=== PATIENT | male | born 1950 | race Caucasian/White ===

== ENCOUNTER 2016-07-02 15:59 | Emergency (ER) | payer MEDICARE ==
[2016-07-02] MEDS ORDERED: methylPREDNISolone Sod Succ/PF 125 MG/2 ML VIAL ONE (16:23)
[2016-07-02 16:56] LABS: Lactic Acid - Sepsis 2.1 mmol/L (0.5-2.2)
[2016-07-02 17:00] LABS: ALT (SGPT) 20 U/L (0-55); AST (SGOT) 23 U/L (5-34); Alkaline Phosphatase 103 U/L (40-150); Anion Gap 18 mmol/L (10-20); BUN (Urea Nitrogen) 10 mg/dL (8.4-25.7); Bilirubin, Total 0.3 mg/dL (0.2-1.2); CK (CPK) 58 U/L (30-200); Calc. Creatinine Clearance 0 mL/min (70-130); Calcium 8.9 mg/dL (7.8-10.44); Carbon Dioxide 19 mmol/L (23-31); Chloride 105 mmol/L (98-107); Estimated GFR-MDRD 72; Globulin 4.1 g/dL (2.4-3.5); Protein, Total 8.1 g/dL (5.8-8.1)
[2016-07-02 17:08] LABS: #Basophils 0.1 thou/uL (0.0-0.2); #Eosinphils 0.1 thou/uL (0.0-0.7); #Lymphocytes 2.2 thou/uL (1.20-3.40); #Neutrophils 3.3 thou/uL (1.40-6.50); %Basophils 1.4 % (0.0-1.0); %Eosinophils 1.6 % (0.0-10.0); %Lymphocytes 32.6 % (21.0-51.0); %Monocytes 14.4 % (0.0-10.0); Hematocrit 44.9 % (42.0-52.0); Macrocytosis SLIGHT = 6-15 cells (100X) (0-5/hpf); Mean Platelet Volume 8.2 fL (7.4-10.4); Red Blood Cell (RBC) Count 4.08 mill/uL (4.70-6.10); White Blood Cell (WBC) Count 6.7 thou/uL (4.8-10.8)
[2016-07-02] MEDS ORDERED: Furosemide 20 MG/2 ML VIAL ONE (17:17)
--- NOTE | 2016-07-02 17:31 | RAD ---
FRONTAL RADIOGRAPH CHEST: Date: 07-02-16 Comparison: 05-03-16 History: Shortness of breath, productive cough. FINDINGS: Stable single lead transvenous pacing device in place. Stable prominence of the cardiac silhouette. Mild pulmonary vascular prominence. No pneumothorax or pleural fluid. No focal consolidation or alveolar edema. IMPRESSION: No acute findings. POS: [facility]
== END 2016-07-02 17:38 | disposition home or self-care (01) ==
LOC: NAV ERS 15:59
DX: J44.1 Chronic obstructive pulmonary disease with (acute) exacerbation (principal); I11.0 Hypertensive heart disease with heart failure; I50.9 Heart failure, unspecified; I25.2 Old myocardial infarction; E78.5 Hyperlipidemia, unspecified; I48.91 Unspecified atrial fibrillation; F17.210 Nicotine dependence, cigarettes, uncomplicated; Z79.82 Long term (current) use of aspirin; Z79.899 Other long term (current) drug therapy
CPT/HCPCS: 71010; 80053; 82553; 83605; 83880; 84484; 85025; 87040; 93005; 94640; 94760; 96374; 96375; J1940; J2930; J7620

== ENCOUNTER 2016-07-10 10:53 | Outpatient (CLI) | payer MEDICARE ==
[2016-07-10 13:17] LABS: Anisocytosis SLIGHT = 6-15 cells (100X) (0-5/hpf); Band 2 % (5-11); Macrocytosis SLIGHT = 6-15 cells (100X) (0-5/hpf); Mean Platelet Volume 8.4 fL (7.4-10.4); Neutrophil 74 % (42-75); Red Blood Cell (RBC) Count 4.25 mill/uL (4.70-6.10)
== END 2016-07-10 10:54 ==
LOC: NAVSJIPCSP 10:53 → NAV LAB 10:54
PROVIDERS: ATTEND Nurse Practitioner Family
DX: R06.89 Other abnormalities of breathing (principal)
CPT/HCPCS: 85025

== ENCOUNTER 2016-07-10 11:00 | Outpatient (CLI) | payer MEDICARE ==
--- NOTE | 2016-07-10 14:54 | RAD ---
TWO VIEWS OF THE CHEST: Date: 07-10-16 Comparison: 07-02-16 History: Dyspnea, bronchi. FINDINGS: There is a single lead transvenous pacing device in place, stable. There is no pneumothorax, large volume pleural effusion, focal consolidation or alveolar edema. There is a subtle area of irregularity involving the lateral aspect of the midright lung zone which could reflect change associated with a prior right sided rib fracture or a small area of pleural thi ckening. There is a questionable nodule identified in the right lower lobe versus a nipple shadowing measurin g 8 mm. IMPRESSION: 1. Subtle area of pleural thickening suspected in midright lung zone laterally. 2. Question right lower lobe nodule versus nipple shadow. 3. Follow up CT examination of the chest is advised. Code T POS: [facility]
== END 2016-07-10 11:01 | disposition home or self-care (01) ==
LOC: NAV RAD 11:00
PROVIDERS: ATTEND Nurse Practitioner Family
DX: R06.89 Other abnormalities of breathing (principal)
CPT/HCPCS: 71020; 85025

== ENCOUNTER 2016-07-13 10:10 | Emergency (ER) | payer MEDICARE ==
[~2016-07-13 10:10] MED LIST: Iopamidol 370 76% 100 ML VIAL ONE
[2016-07-13] MEDS ORDERED: Albuterol Sulfate 2.5 mg/0.5 ml Neb ONE ×2 (10:46)
[2016-07-13] MEDS ORDERED: Ipratropium Bromide 2.5 ml Neb ONE (10:47)
[2016-07-13 11:57] LABS: Troponin I 0.012 ng/mL (< 0.028)
--- NOTE | 2016-07-13 14:35 | CT ---
CT ANGIO OF CHEST WITH CONTRAST: HISTORY: Difficulty breathing. Elevated D-dimer. COMPARISON: Chest 2 view 07/10/16. TECHNIQUE: CT angiogram of the chest was performed after the intravenous administration of contrast per pulmona ry embolism protocol. Three-D rendering is provided. FINDINGS: Pulmonary trunk size as well as the right and left main pulmonary arteries are enlarged suggesting p ulmonary arterial hypertension. No segmental pulmonary arterial filling defect. There is peribronchial vascular cuffing of the inferior lingula as well as left lower lobe. There i s consolidation of partially enhancing tissue in the left lung base. There are a few pleural plaques, some calcified and some noncalcified. There is prominent noncalcif ied pleural plaque of the right peripheral mid lung, likely accompanying the previously seen shadowi ng on the prior radiograph. A few reactive lymph nodes in the mediastinum. Heart size is enlarged. No pericardial effusion. Moderate-sized sliding hiatal hernia. Calcified granulomas of the liver and spleen. Aorta is mildly tortuous. The skeleton is without suspicious lytic or blastic lesion. IMPRESSION: 1. No pulmonary embolism to the segmental level. 2. Findings suggestive of multifocal bronchopneumonia of the left lower lobe and inferior lingula. Followup after treatment is highly recommended as a malignancy can appear similar. 3. Multiple calcified and noncalcified pleural plaques. 4. A few tree-in-bud opacities of the anterior segment right lower lobe may also represent a compon ent of bronchopneumonia. Followup after treatment at a maximum of 3 months is recommended to follow these findings. CODE LN POS: [facility]
[2016-07-13] MEDS ORDERED: cefTRIAXone\\ROCEPHIN 2 GM VIAL ONE (14:49)
[2016-07-13] MEDS ORDERED: Sodium Chloride 0.9% 100 ML ONE (14:50)
== END 2016-07-13 15:56 | disposition home or self-care (01) ==
LOC: NAV ERS 10:10
DX: J18.9 Pneumonia, unspecified organism (principal); J44.9 Chronic obstructive pulmonary disease, unspecified; I25.2 Old myocardial infarction; I48.91 Unspecified atrial fibrillation; E78.5 Hyperlipidemia, unspecified; E78.00 Pure hypercholesterolemia, unspecified; I10 Essential (primary) hypertension; Z87.891 Personal history of nicotine dependence
CPT/HCPCS: 71275; 83880; 84484; 85379; 93005; 94640; 96365; J0696; J7611; J7644

== ENCOUNTER 2016-07-22 14:37 | Emergency (ER) | payer MEDICARE ==
[2016-07-22 16:20] LABS: #Basophils 0.1 thou/uL (0.0-0.2); #Lymphocytes 2.1 thou/uL (1.20-3.40); #Monocytes 0.7 thou/uL (0.11-0.59); #Neutrophils 5.6 thou/uL (1.40-6.50); %Eosinophils 0.5 % (0.0-10.0); %Lymphocytes 25.1 % (21.0-51.0); %Neutrophils 65.5 % (42.0-75.0); Hemoglobin 14.9 g/dL (14.0-18.0); Mean Platelet Volume 9.4 fL (7.4-10.4); Platelet Count 189 thou/uL (130-400); RBC Distribution Width 12.8 % (11.5-14.5); Red Blood Cell (RBC) Count 4.26 mill/uL (4.70-6.10); White Blood Cell (WBC) Count 8.5 thou/uL (4.8-10.8)
[2016-07-22 16:22] LABS: ALT (SGPT) 24 U/L (0-55); AST (SGOT) 17 U/L (5-34); Albumin 3.6 g/dL (3.4-4.8); Alkaline Phosphatase 102 U/L (40-150); Anion Gap 16 mmol/L (10-20); BUN (Urea Nitrogen) 16 mg/dL (8.4-25.7); Bilirubin, Total 0.3 mg/dL (0.2-1.2); CK (CPK) 25 U/L (30-200); Calc. Creatinine Clearance 0 mL/min (70-130); Calcium 8.6 mg/dL (7.8-10.44); Carbon Dioxide 25 mmol/L (23-31); Chloride 99 mmol/L (98-107); Estimated GFR-MDRD 67; Glucose 118 mg/dL (80-115); Potassium 5.2 mmol/L (3.5-5.1); Protein, Total 6.6 g/dL (5.8-8.1); Sodium 135 mmol/L (136-145)
[2016-07-22 17:20] LABS: CKMB 1.4 ng/mL (0-6.6); Troponin I 0.024 ng/mL (< 0.028)
--- NOTE | 2016-07-22 17:30 | RAD ---
PORTABLE CHEST: 07/22/16 COMPARISON: 07/02/16 study. HISTORY: Shortness of breath. Heart size is within normal limits. A pacemaker is present. The lungs are clear of any infiltrative process. A nodular density in the right base is probably on the basis of a pleural based areas of no dularity noted on a previous CT examination of 07/13/16. There is some faint pleural based plaque. IMPRESSION: Pleural based plaques. No acute infiltrative process. POS: [facility]
== END 2016-07-22 17:43 | disposition home or self-care (01) ==
LOC: NAV ERS 14:37
DX: I87.2 Venous insufficiency (chronic) (peripheral) (principal); E78.5 Hyperlipidemia, unspecified; I11.0 Hypertensive heart disease with heart failure; I50.9 Heart failure, unspecified; I25.2 Old myocardial infarction; I48.91 Unspecified atrial fibrillation; Z87.891 Personal history of nicotine dependence
CPT/HCPCS: 71010; 80053; 82553; 83880; 84484; 85025; 93005

== ENCOUNTER 2017-01-30 11:01 | Outpatient (CLI) | payer MEDICARE ==
[2017-01-30 13:47] LABS: ALT (SGPT) 12 U/L (8-55); AST (SGOT) 14 U/L (5-34); Albumin 4.1 g/dL (3.4-4.8); Alkaline Phosphatase 106 U/L (40-150); Anion Gap 20 mmol/L (10-20); BUN (Urea Nitrogen) 9 mg/dL (8.4-25.7); Bilirubin, Direct 0.3 mg/dL (0.1-0.3); Bilirubin, Total 0.5 mg/dL (0.2-1.2); Calc. Creatinine Clearance 0 mL/min (70-130); Calcium 9.3 mg/dL (7.8-10.44); Carbon Dioxide 20 mmol/L (23-31); Cardiac Risk 3.1 (Less than 4.5); Chloride 106 mmol/L (98-107); Cholesterol 112 mg/dl (< 200 Desired); Estimated GFR-MDRD 77; Glucose 110 mg/dL (80-115); HDL Cholesterol 36 mg/dL (>60 Neg Risk); LDL Cholesterol, Calculated 58 mg/dL; Protein, Total 7.5 g/dL (5.8-8.1); Sodium 141 mmol/L (136-145); Triglycerides 89 mg/dL (Less than 150)
[2017-01-30 13:59] LABS: PSA-Asymptomatic (SCREENING) 4.49 ng/mL (0-4.0); Thyroid Stimulating Hormone 0.6793 uIU/mL (0.35-4.94)
[2017-01-30 14:03] LABS: Hemoglobin A1c 6.4 % (4.0-6.0)
[2017-01-30 14:24] LABS: #Basophils 0.1 thou/uL (0.0-0.2); #Eosinphils 0.1 thou/uL (0.0-0.7); #Lymphocytes 2.1 thou/uL (1.20-3.40); #Monocytes 0.8 thou/uL (0.11-0.59); #Neutrophils 5.1 thou/uL (1.40-6.50); %Basophils 0.8 % (0.0-1.0); %Eosinophils 1.1 % (0.0-10.0); %Lymphocytes 25.7 % (21.0-51.0); %Monocytes 9.9 % (0.0-10.0); %Neutrophils 62.4 % (42.0-75.0); Hemoglobin 14.3 g/dL (14.0-18.0); MDiff Complete? YES; Mean Corpuscular Hemoglobin 34.8 pg (27.0-31.0); Mean Platelet Volume 7.8 fL (7.4-10.4); Platelet Count 271 thou/uL (130-400); RBC Distribution Width 11.5 % (11.5-14.5); Red Blood Cell (RBC) Count 4.12 mill/uL (4.70-6.10); White Blood Cell (WBC) Count 8.2 thou/uL (4.8-10.8)
[2017-01-30 14:25] LABS: Anisocytosis SLIGHT = 6-15 cells (100X) (0-5/hpf); Giant Platelets SLIGHT; Macrocytosis MODERATE=16-30 cells (100X) (0-5/hpf); PLT Morphology Comment Appears Adequate
== END 2017-01-30 11:02 | disposition home or self-care (01) ==
LOC: NAVSJIPCSP 11:01
PROVIDERS: ATTEND Family Medicine
DX: I48.1 Persistent atrial fibrillation (principal); I10 Essential (primary) hypertension; K21.9 Gastro-esophageal reflux disease without esophagitis; I25.10 Atherosclerotic heart disease of native coronary artery without angina pectoris; I21.29 ST elevation (STEMI) myocardial infarction involving other sites; F41.8 Other specified anxiety disorders; R30.0 Dysuria
CPT/HCPCS: 36415; 80048; 80061; 80076; 83036; 84443; 85025; G0103

== ENCOUNTER 2019-12-12 12:39 | Emergency (ER) | payer MEDICARE, OTHER ==
[2019-12-12] MEDS ORDERED: Ondansetron ODT 4 MG TAB ONE (13:11)
[2019-12-12] MEDS ORDERED: Sodium Chloride 0.9% 500 ML ONE (13:23)
[2019-12-12] MEDS ORDERED: cefTRIAXone\\ROCEPHIN 1 GM VIAL ONE ×2 (13:33→13:41)
[2019-12-12 13:39] LABS: Bilirubin Large (Negative); Blood, Urine Negative (Negative); Clarity Clear (Clear); Glucose, Urine (Dipstick) Negative (Negative); Ketone, Urine 80 mg/dL (Negative); Leukocyte Negative (Negative); Nitrite Negative (Negative); Protein, Urine (Dipstick) 30 mg/dL (Neg-Trace)
[2019-12-12 13:41] LABS: Hemoglobin 14.7 g/dL (14.0-18.0); Mean Corpuscular HGB CONC 30.8 g/dL (32.0-36.0); Mean Corpuscular Hemoglobin 33.8 pg (27.0-31.0); Platelet Count 196 thou/uL (130-400); Red Blood Cell (RBC) Count 4.35 mill/uL (4.70-6.10); White Blood Cell (WBC) Count 10.5 thou/uL (4.8-10.8)
[2019-12-12 13:43] LABS: Anisocytosis SLIGHT = 6-15 cells (100X) (0-5/hpf); Lymphocytes 24 % (21-51); MDiff Complete? YES; Macrocytosis SLIGHT = 6-15 cells (100X) (0-5/hpf); Monocytes 9 % (0-10); Neutrophil 67 % (42-75); Platelet Morphology Comment Appears Adequate
[2019-12-12 13:52] LABS: ALT (SGPT) 9 U/L (8-55); AST (SGOT) 16 U/L (5-34); Albumin 3.2 g/dL (3.4-4.8); Alkaline Phosphatase 116 U/L (40-110); Anion Gap 19 mmol/L (10-20); BUN (Urea Nitrogen) 12 mg/dL (8.4-25.7); Bilirubin, Total 0.7 mg/dL (0.2-1.2); Calc. Creatinine Clearance 0 mL/min (70-130); Calcium 8.8 mg/dL (7.8-10.44); Carbon Dioxide 22 mmol/L (23-31); Chloride 104 mmol/L (98-107); Estimated GFR-MDRD 81; Globulin 3.7 g/dL (2.4-3.5); Glucose 113 mg/dL (83-110); Potassium 3.9 mmol/L (3.5-5.1); Protein, Total 6.9 g/dL (5.8-8.1); Sodium 141 mmol/L (136-145)
[2019-12-12 13:52] LABS: Bacteria/HPF None Seen HPF (None Seen); Specific Gravity, Urine Greater/Equal 1.030 (1.005-1.030); Squamous Epithelial 0-3 HPF (0-3); WBC/HPF None Seen HPF (0-3)
--- NOTE | 2019-12-12 14:11 | RAD ---
EXAM: CHEST ONE VIEW PORTABLE: 12/12/19 HISTORY: Follow-up chest pain. Dyspnea. COMPARISON: 02/03/17. FINDINGS: there is some pleural thickening noted bilaterally with some blunting in the left costophrenic angle which is more prominent than on the prior study possibly representing some left pleural effusion. Hea rt size is within upper range of normal limits. No new confluent pneumonia or overt edema. IMPRESSION: Bilateral pleural thickening with some slightly worsening blunting in the left costophrenic angle pos sibly some left pleural effusion. Stable pleural and parenchymal opacity changes in the mid lung zone s bilaterally. No significant new process. Depending upon concern, short term follow-up with PA and l ateral chest might be of benefit whenever the patient can undergo that study. POS: [facility]
== END 2019-12-12 15:15 | disposition home or self-care (01) ==
LOC: NAV ERS 12:39
DX: E86.0 Dehydration (principal); I11.0 Hypertensive heart disease with heart failure; I50.9 Heart failure, unspecified; E78.5 Hyperlipidemia, unspecified; J44.9 Chronic obstructive pulmonary disease, unspecified; F32.9 Major depressive disorder, single episode, unspecified; Z87.891 Personal history of nicotine dependence; Z79.899 Other long term (current) drug therapy; Z79.82 Long term (current) use of aspirin
CPT/HCPCS: 36415; 71045; 80053; 81003; 81015; 83605; 84484; 85025; 87040; 87086; 93005; 96361; 96374; J0696; J7030; Q0162